=== PATIENT | female | born 1985 | race Caucasian/White ===

== ENCOUNTER 2021-07-14 22:17 | Emergency (ER) | payer OTHER ==
[2021-07-14 22:57] LABS: BILIRUBIN NEGATIVE (NEGATIVE); BLOOD 3+ Ery/uL (NEGATIVE); CLARITY CLEAR (CLEAR); COLOR YELLOW (YELLOW); GLUCOSE (U) NORMAL (NORMAL); LEUKOCYTES NEGATIVE Leu/uL (NEGATIVE); NITRITE NEGATIVE (NEGATIVE); PROTEIN TRACE (LOW) mg/dL (NEGATIVE); SPECIFIC GRAVITY >=1.030 (1.001-1.030); UROBILINOGEN 0.2 mg/dL (0.2-1.0)
[2021-07-14 23:08] LABS: BASOPHIL 0.6 % (0-2); EOSINOPHIL 1.9 % (0-5); HCT 36.3 % (37.0-47.0); HGB 12.3 g/dl (12.5-16.0); LYMPHOCYTE 22.9 % (15-48); MCH 30.1 pg (25.0-31.0); MCHC 33.9 g/dL (32.0-36.0); MONOCYTE 10.4 % (0-12); MPV 10.3 fL (6.0-9.5); NEUTROPHIL 63.9 % (41-80); NRBC 0; PLT 228 K/uL (150-400); RBC 4.08 M/uL (4.20-5.40); WBC 7.8 K/uL (4.0-10.5)
[2021-07-14 23:16] LABS: AMORPHOUS URATES CRYSTALS TRACE; BACTERIA 1+; MUCOUS TRACE; URINARY RBC TNTC
[2021-07-14 23:25] LABS: ALBUMIN 3.4 g/dL (3.4-5.0); BILIRUBIN - TOTAL 0.4 mg/dL (0.2-1.0); BUN/CREAT RATIO (CALC) 14.1 RATIO; CREATININE 0.92 mg/dL (0.51-0.95); POTASSIUM 3.8 mmol/L (3.5-5.1); TOTAL PROTEIN 6.4 g/dL (6.4-8.2)
[2021-07-15] MEDS ORDERED: FLOMAX0.4 MG PO (00:50)
[2021-07-15] MEDS ORDERED: NAPROXEN500 MG PO (00:50)
[2021-07-15] MEDS ORDERED: PERCOCET 5-3251 EACH PO (00:50)
[2021-07-15] MEDS ORDERED: ONDANSETRON ODT4 MG PO (00:50)
== END 2021-07-15 02:33 | disposition home or self-care (01) ==
LOC: FER 22:17
PROVIDERS: Internal Medicine
DX: N13.2 Hydronephrosis with renal and ureteral calculous obstruction (principal); Z87.442 Personal history of urinary calculi
CPT/HCPCS: 36415; 80053; 81001; 83690; 85025; J1170; J7120